=== PATIENT | female | born 1965 | race Caucasian/White ===

== ENCOUNTER → 2016-08-15 | Outpatient (CLI) | payer MEDICARE, OTHER ==
[~2016-08-15] MED LIST: BOTOX INJ 1100 UNITS IM; COLACE 100MG C100 MG PO; DULERA 200 MCG8.8 GM INH; FLOVENT 220.1 GM/INH INH; LASIX40 MG PO; LIORESAL TAB 1010 MG PO; LORTAB 10-3251 EACH PO; MIRALAX PACK 171 PKT PO; MIRAPEX1.5 MG PO; MOVANTIK25 MG PO; MUCINEX D ER 61 EACH PO; NEURONTIN 300300 MG PO; NEXIUM40 MG PO; POTASSIUM CHLO10 MEQ PO; TOPAMAX100 MG PO; VALIUM 5 MG TAB5 MG PO; VENTOLIN/PROVE0.5 ML INH; XOPENEX HFA15 GM INH; ZOLOFT100 MG PO
== END ==
LOC: KOH-I 11:37
DX: M79.671 Pain in right foot (principal); M79.661 Pain in right lower leg
CPT/HCPCS: 73590; 73610; 73630

== ENCOUNTER → 2020-06-26 | Outpatient (CLI) | payer MEDICARE, OTHER ==
[~2020-06-26] VITALS: Ht 170.2 cm; Wt 73.5 kg
[~2020-06-26] MED LIST changes: +CARAFATE 1 GM TA1 GM PO; +ERYTHROMYCIN250 MG PO; +PHENERGAN 25 MG25 M1 PO; +PROTONIX40 MG PO; +RELAFEN 750 MG750 MG PO; +VALIUM 10 MG TA10 MG PO; +VENTOLIN HFA 66.7 GM INH; +XYZAL5 MG PO; +ZANAFLEX4 MG PO
== END ==
LOC: OPSV 11:44
DX: Z45.2 Encounter for adjustment and management of vascular access device (principal); K52.9 Noninfective gastroenteritis and colitis, unspecified
CPT/HCPCS: 96365; 96367; 96375; J1364; J1642; J2270; J2550

== ENCOUNTER 2020-07-03 12:59 | Inpatient (IN) | payer MEDICARE, OTHER ==
[~2020-07-03] VITALS: Ht 170.2 cm; Wt 114.3 kg
[2020-07-03 15:58] LABS: BUN/CREATININE RATIO 15 (0-10)
[2020-07-03 16:09] LABS: RED BLOOD COUNT 4.88 M/UL (4.00-5.10)
--- NOTE | 2020-07-03 17:41 | NUR ---
07/03/20 1700 REFUSES TO USE BED ALARM AND OTHER FALL PRECAUTIONS
[2020-07-04 03:03] LABS: HEMOGLOBIN 11.3 gm/dl (12.3-15.3); RED BLOOD COUNT 4.51 M/UL (4.00-5.10); WHITE BLOOD COUNT 7.1 K/UL (4.5-11.0)
[2020-07-04 03:40] LABS: BUN/CREATININE RATIO 16 (0-10)
[2020-07-05 04:46] LABS: BUN/CREATININE RATIO 15 (0-10)
[2020-07-06 04:36] LABS: BUN/CREATININE RATIO 11 (0-10)
== END 2020-07-06 13:59 | disposition home or self-care (01) | DRG 390 ==
LOC: MED SURG 4 13:39
PROVIDERS: ADMIT Family Medicine
DX: K56.699 Other intestinal obstruction unspecified as to partial versus complete obstruction (principal); K59.89 Other specified functional intestinal disorders; K59.9 Functional intestinal disorder, unspecified; M19.90 Unspecified osteoarthritis, unspecified site; K27.7 Chronic peptic ulcer, site unspecified, without hemorrhage or perforation; K31.89 Other diseases of stomach and duodenum; K21.9 Gastro-esophageal reflux disease without esophagitis; J30.2 Other seasonal allergic rhinitis; M54.12 Radiculopathy, cervical region; G43.709 Chronic migraine without aura, not intractable, without status migrainosus; G89.4 Chronic pain syndrome; F32.9 Major depressive disorder, single episode, unspecified; G24.1 Genetic torsion dystonia; M79.604 Pain in right leg; M79.605 Pain in left leg; G24.9 Dystonia, unspecified; M96.1 Postlaminectomy syndrome, not elsewhere classified; E87.6 Hypokalemia; Z20.822 Contact with and (suspected) exposure to COVID-19; E66.9 Obesity, unspecified; M77.8 Other enthesopathies, not elsewhere classified; Z88.6 Allergy status to analgesic agent; Z91.041 Radiographic dye allergy status; Z12.11 Encounter for screening for malignant neoplasm of colon; Z79.899 Other long term (current) drug therapy; Z91.012 Allergy to eggs; Z91.013 Allergy to seafood; Z88.8 Allergy status to other drugs, medicaments and biological substances; Z91.018 Allergy to other foods; Z87.19 Personal history of other diseases of the digestive system; Z12.12 Encounter for screening for malignant neoplasm of rectum; Z90.49 Acquired absence of other specified parts of digestive tract; Z90.89 Acquired absence of other organs; Z83.42 Family history of familial hypercholesterolemia; Z83.3 Family history of diabetes mellitus; Z80.1 Family history of malignant neoplasm of trachea, bronchus and lung; Z82.49 Family history of ischemic heart disease and other diseases of the circulatory system; Z68.39 Body mass index [BMI] 39.0-39.9, adult
CPT/HCPCS: 36415; 74018; 80048; 80053; 81001; 85027; 87040; 87086; 94640; 94664; 94760; J1364; J2270; J2550; J7030; U0002

== ENCOUNTER → 2020-07-27 | Outpatient (CLI) | payer MEDICARE, OTHER ==
[~2020-07-27] VITALS: Ht 170.2 cm; Wt 99.3 kg
== END ==
LOC: OPSV 08:00
DX: T82.9XXA Unspecified complication of cardiac and vascular prosthetic device, implant and graft, initial encounter (principal)
CPT/HCPCS: 96523; J1642; J2997

== ENCOUNTER → 2020-11-16 | Outpatient (CLI) | payer MEDICARE, OTHER ==
[~2020-11-16] VITALS: Ht 170.2 cm; Wt 121.1 kg
== END ==
LOC: OPSV 15:29
DX: K59.9 Functional intestinal disorder, unspecified (principal); R11.2 Nausea with vomiting, unspecified
CPT/HCPCS: 96365; 96375; J1364; J1642; J2270; J2550

== ENCOUNTER → 2020-11-20 | Outpatient (CLI) | payer MEDICARE, OTHER ==
[~2020-11-20] VITALS: Ht 170.2 cm; Wt 121.1 kg
== END ==
LOC: OPSV 13:45
DX: K52.9 Noninfective gastroenteritis and colitis, unspecified (principal); K59.9 Functional intestinal disorder, unspecified
CPT/HCPCS: 96365; 96366; 96375; J1364; J1642; J2270; J2550; J7030

== ENCOUNTER → 2021-01-23 | Outpatient (CLI) | payer MEDICARE, OTHER ==
[~2021-01-23] VITALS: Ht 170.2 cm; Wt 121.1 kg
== END ==
LOC: OPSV 14:55
DX: K59.9 Functional intestinal disorder, unspecified (principal); K52.9 Noninfective gastroenteritis and colitis, unspecified
CPT/HCPCS: 96360; 96365; 96367; 96375; J1364; J1642; J2270; J2550; J7030

== ENCOUNTER → 2021-01-28 | Outpatient (CLI) | payer MEDICARE, OTHER ==
[~2021-01-28] VITALS: Ht 170.2 cm; Wt 121.1 kg
== END ==
LOC: OPSV 12:35
DX: K21.9 Gastro-esophageal reflux disease without esophagitis (principal); K52.9 Noninfective gastroenteritis and colitis, unspecified
CPT/HCPCS: 96360; 96365; 96375; J1364; J1642; J2270; J2550; J7030

== ENCOUNTER → 2021-01-30 | Outpatient (CLI) | payer MEDICARE, OTHER ==
[~2021-01-30] VITALS: Ht 170.2 cm; Wt 121.1 kg
== END ==
LOC: OPSV 12:54
DX: K21.9 Gastro-esophageal reflux disease without esophagitis (principal); K52.9 Noninfective gastroenteritis and colitis, unspecified; Z87.19 Personal history of other diseases of the digestive system
CPT/HCPCS: 96360; 96365; 96375; J1364; J1642; J2270; J2550

== ENCOUNTER 2021-03-15 15:08 | Inpatient (IN) | payer MEDICARE, OTHER ==
[~2021-03-15] VITALS: Ht 170.2 cm; Wt 120.2 kg
[~2021-03-15 15:08] MED LIST changes: +BACLOFEN20 MG PO; +HYDROCODON-ACE1 EAC6 PO; -LIORESAL TAB 1010 MG PO; +POTASSIUM CHLO10 ME1 PO; -POTASSIUM CHLO10 MEQ PO; +PROAIR HFA8.5 GM INH; -VENTOLIN HFA 66.7 GM INH
[2021-03-15 19:12] LABS: HEMOGLOBIN 13.2 gm/dl (12.3-15.3); RED BLOOD COUNT 4.8 M/UL (4.00-5.10); WHITE BLOOD COUNT 9.8 K/UL (4.5-11.0)
[2021-03-15 19:30] LABS: BUN/CREATININE RATIO 19 (0-10)
[2021-03-16 04:32] LABS: HEMOGLOBIN 12.7 gm/dl (12.3-15.3); RED BLOOD COUNT 4.71 M/UL (4.00-5.10); WHITE BLOOD COUNT 7.5 K/UL (4.5-11.0)
[2021-03-16 04:54] LABS: BUN/CREATININE RATIO 18 (0-10)
[2021-03-16] MEDS ORDERED: ASPIRIN EC81 MG PO (10:04)
[2021-03-17 07:18] LABS: BUN/CREATININE RATIO 15 (0-10)
== END 2021-03-18 16:30 | disposition home or self-care (01) | DRG 389 ==
LOC: ER1 15:08 → CDU 18:38 → MED SURG 4 18:38
PROVIDERS: Internal Medicine Infectious Disease; Nurse Practitioner; ADMIT Family Medicine
DX: K56.7 Ileus, unspecified (principal); Z68.41 Body mass index [BMI] 40.0-44.9, adult; K21.9 Gastro-esophageal reflux disease without esophagitis; J45.909 Unspecified asthma, uncomplicated; R27.0 Ataxia, unspecified; H54.7 Unspecified visual loss; E66.9 Obesity, unspecified; M54.12 Radiculopathy, cervical region; G43.709 Chronic migraine without aura, not intractable, without status migrainosus; G89.4 Chronic pain syndrome; F32.A Depression, unspecified; G24.1 Genetic torsion dystonia; E86.0 Dehydration; M54.16 Radiculopathy, lumbar region; K59.9 Functional intestinal disorder, unspecified; Z82.3 Family history of stroke; Z90.49 Acquired absence of other specified parts of digestive tract; Z82.61 Family history of arthritis; Z80.1 Family history of malignant neoplasm of trachea, bronchus and lung; Z83.3 Family history of diabetes mellitus; Z83.42 Family history of familial hypercholesterolemia; Z84.89 Family history of other specified conditions
CPT/HCPCS: 36415; 74018; 80053; 83605; 83690; 83735; 85025; 85027; 86140; 99285; C9113; J0456; J1200; J1642; J1650; J2270; J2550; J2765; J7030; U0002

== ENCOUNTER → 2021-10-23 | Outpatient (CLI) | payer MEDICARE, OTHER ==
[~2021-10-23] VITALS: Ht 170.2 cm; Wt 121.6 kg
[~2021-10-23] MED LIST changes: +ASPIRIN EC81 MG PO
== END ==
LOC: OPSV 09:00
DX: R11.2 Nausea with vomiting, unspecified (principal); K59.9 Functional intestinal disorder, unspecified; Z45.2 Encounter for adjustment and management of vascular access device
CPT/HCPCS: 96361; 96365; 96375; J1364; J1642; J2270; J2550; J2997; J7030

== ENCOUNTER → 2021-12-25 | Outpatient (CLI) | payer MEDICARE, OTHER ==
[~2021-12-25] VITALS: Ht 170.2 cm; Wt 117.9 kg
== END ==
LOC: OPSV 07:46
DX: T82.9XXA Unspecified complication of cardiac and vascular prosthetic device, implant and graft, initial encounter (principal)
CPT/HCPCS: 96374; J1642; J2997